=== PATIENT | female | born 1945 | race Caucasian/White ===

== ENCOUNTER 2016-11-22 09:38 | Outpatient (CLI) | payer MEDICARE | END 2016-11-22 23:59 | DX: E11.9 Type 2 diabetes mellitus without complications (principal) ==

== ENCOUNTER 2017-01-11 13:11 | Outpatient (CLI) | payer MEDICARE | END 2017-01-11 13:12 | disposition home or self-care (01) | DX: H53.9 Unspecified visual disturbance (principal); R49.0 Dysphonia ==

== ENCOUNTER 2017-09-04 08:23 | Outpatient (CLI) | payer MEDICARE ==
[2017-09-04 14:51] LABS: ALBUMIN/GLOBULIN RATIO 1.4 (1.0-2.2); BILIRUBIN,TOTAL 0.3 mg/dL (0.2-1.0); BUN - BLOOD UREA NITROGEN 30 mg/dL (6-20); CALCIUM 9.3 mg/dL (8.5-10.3); CARBON DIOXIDE - CO2 26 mmol/L (21-32); CHLORIDE 103 mmol/L (101-111); CHOL/HDL RATIO 8.5 (<4.4); CHOLESTEROL 408 mg/dL; CREATININE 1.1 mg/dL (0.4-1.0); GFR - MDRD 49 (>89); GLUCOSE 188 mg/dL (70-100); HDL CHOLESTEROL 48 mg/dL; POTASSIUM 4.5 mmol/L (3.5-5.0); SODIUM 137 mmol/L (135-145); TOTAL PROTEIN 6.9 g/dL (6.7-8.2); TRIGLYCERIDES 638 mg/dL
[2017-09-04 15:06] LABS: HEMOGLOBIN A1C 0.82 g/dL
[2017-09-04 15:10] LABS: LDL CHOLESTEROL,DIRECT 223 mg/dL
== END 2017-09-04 08:24 | disposition home or self-care (01) ==
LOC: LAB.WCP 08:23
PROVIDERS: ATTEND Physician Assistant Medical
DX: E11.9 Type 2 diabetes mellitus without complications (principal)
CPT/HCPCS: 36415; 80053; 80061; 83036

== ENCOUNTER 2017-12-05 08:00 | Outpatient (CLI) | payer MEDICARE ==
[2017-12-05 12:29] LABS: ALBUMIN 3.9 g/dL (3.2-5.5); ALBUMIN/GLOBULIN RATIO 1.4 (1.0-2.2); BILIRUBIN,TOTAL 0.6 mg/dL (0.2-1.0); CALCIUM 9.1 mg/dL (8.5-10.3); CREATININE 1.3 mg/dL (0.4-1.0); TOTAL PROTEIN 6.7 g/dL (6.7-8.2)
[2017-12-05 12:34] LABS: HB2 TOTAL 13.3 g/dL; HEMOGLOBIN A1C 0.82 g/dL; HEMOGLOBIN A1C % 7.8 % (4.6-6.2)
== END 2017-12-05 08:01 | disposition home or self-care (01) ==
LOC: LAB.WCP 08:00
PROVIDERS: ATTEND Physician Assistant Medical
DX: E11.9 Type 2 diabetes mellitus without complications (principal)
CPT/HCPCS: 36415; 80053; 83036

== ENCOUNTER 2017-12-22 11:06 | Outpatient (CLI) | payer MEDICARE ==
--- NOTE | 2017-12-22 23:59 | Ultrasound Report ---
EXAM: THYROID ULTRASOUND EXAM DATE: 12/22/2017 11:58 AM. CLINICAL HISTORY: Right thyroid nodule COMPARISON: None. TECHNIQUE: Real time sonographic imaging of the thyroid was performed by the manufacturing millwright. Multiple re presentative static images were saved for review. FINDINGS: THYROID GLAND: Right Lobe: 3.3 x 1.3 x 1.6 cm, volume 3.6 cc. Normal background echotexture. Right Lobe Nodules: Multiple tiny anechoic cysts, the largest 0.3 cm in the midportion. Left Lobe: 3.4 x 0.7 x 1.2 cm, volume 1.5 cc. Normal background echotexture. Left Lobe Nodules: Multiple tiny anechoic cysts, the largest 0.2 cm in the midportion. Isthmus: 0.2 cm AP. Isthmic Nodules: None. LYMPH NODES: No adenopathy demonstrated in the central or lateral compartment. OTHER: None. IMPRESSION: Multiple tiny subcentimeter cysts bilaterally, benign finding. Management recommendations are based on 2015 [place] [employer] Management Guidelines for A dult Patients with Thyroid Nodules and Differentiated Thyroid Cancer. [facility] Referring Provider Line: [phone] SITE ID: [id number]
== END 2017-12-22 11:07 | disposition home or self-care (01) ==
LOC: DI 11:06
PROVIDERS: ATTEND Physician Assistant Medical
DX: E04.2 Nontoxic multinodular goiter (principal)
CPT/HCPCS: 76536

== ENCOUNTER 2018-03-12 08:26 | Outpatient (CLI) | payer MEDICARE ==
[2018-03-12 12:53] LABS: HB2 TOTAL 13.2 g/dL; HEMOGLOBIN A1C 0.77 g/dL; HEMOGLOBIN A1C % 7.5 % (4.6-6.2)
[2018-03-12 12:57] LABS: BUN - BLOOD UREA NITROGEN 27 mg/dL (6-20); CARBON DIOXIDE - CO2 24 mmol/L (21-32); CHLORIDE 101 mmol/L (101-111); CHOL/HDL RATIO 7.3 (<4.4); CHOLESTEROL 345 mg/dL; CREATININE 1.3 mg/dL (0.4-1.0); GFR - MDRD 40 (>89); GLUCOSE 199 mg/dL (70-100); HDL CHOLESTEROL 47 mg/dL; LDL CHOLESTEROL,CALCULATED 218 mg/dL; LDL/HDL RATIO 4.6 (<4.4); SODIUM 134 mmol/L (135-145); VLDL CHOLESTEROL 80 mg/dL
== END 2018-03-12 08:27 | disposition home or self-care (01) ==
LOC: LAB.WCP 08:26
PROVIDERS: ATTEND Physician Assistant Medical
DX: E11.9 Type 2 diabetes mellitus without complications (principal); E78.5 Hyperlipidemia, unspecified
CPT/HCPCS: 36415; 80048; 80061; 83036; 83721; 84443

== ENCOUNTER 2018-06-19 09:37 | Outpatient (CLI) | payer MEDICARE ==
[2018-06-19 12:58] LABS: HB2 TOTAL 13.2 g/dL; HEMOGLOBIN A1C 0.99 g/dL
[2018-06-19 13:10] LABS: CALCIUM 9.2 mg/dL (8.5-10.3); CREATININE 1.4 mg/dL (0.4-1.0)
== END 2018-06-19 09:38 | disposition home or self-care (01) ==
LOC: LAB.WCP 09:37
PROVIDERS: ATTEND Physician Assistant Medical
DX: E11.9 Type 2 diabetes mellitus without complications (principal)
CPT/HCPCS: 36415; 80048; 83036

== ENCOUNTER 2019-01-17 08:00 | Outpatient (CLI) | payer MEDICARE ==
[2019-01-17 12:29] LABS: BASOPHILS # (AUTO) 0.1 10^3/uL (0.0-0.1); BASOPHILS % (AUTO) 0.9 %; EOSINOPHILS # (AUTO) 0.1 10^3/uL (0.0-0.7); EOSINOPHILS % (AUTO) 2.2 %; HGB - HEMOGLOBIN 12.6 g/dL (12.0-16.0); LYMPHOCYTES # (AUTO) 1.9 10^3/uL (1.5-3.5); LYMPHOCYTES % (AUTO) 29.2 %; MEAN CORPUSCULAR HGB CONC 33.3 g/dL (32.0-36.0); MEAN CORPUSCULAR VOLUME 93.2 fL (81.0-99.0); MEAN PLATELET VOLUME 7.5 fL (7.9-10.8); MONOCYTES # (AUTO) 0.5 10^3/uL (0.0-1.0); MONOCYTES % (AUTO) 8.1 %; NEUTROPHILS # (AUTO) 3.9 10^3/uL (1.5-6.6); NEUTROPHILS % (AUTO) 59.6 %; PLT - PLATELET COUNT 284 10^3/uL (130-450); RED BLOOD COUNT 4.07 10^6/uL (4.20-5.40); RED CELL DISTRIBUTION WIDTH 14.4 % (12.0-15.0); WHITE BLOOD COUNT 6.6 x10^3/uL (4.8-10.8)
[2019-01-17 12:52] LABS: ALBUMIN 3.8 g/dL (3.2-5.5); ALBUMIN/GLOBULIN RATIO 1.3 (1.0-2.2); ALKALINE PHOSPHATASE 64 IU/L (42-121); ALT ALANINE AMINOTRANSFERASE 30 IU/L (10-60); AST ASPARTATE AMINOTRANSFERASE 26 IU/L (10-42); BILIRUBIN,TOTAL 0.6 mg/dL (0.2-1.0); BUN - BLOOD UREA NITROGEN 24 mg/dL (6-20); CALCIUM 9.1 mg/dL (8.5-10.3); CARBON DIOXIDE - CO2 23 mmol/L (21-32); CHLORIDE 101 mmol/L (101-111); CHOLESTEROL 461 mg/dL; CREATININE 1.2 mg/dL (0.4-1.0); GFR - MDRD 44 (>89); GLUCOSE 174 mg/dL (70-100); HDL CHOLESTEROL 42 mg/dL; SODIUM 135 mmol/L (135-145); TOTAL PROTEIN 6.7 g/dL (6.7-8.2)
[2019-01-17 13:12] LABS: HB2 TOTAL 13.3 g/dL; HEMOGLOBIN A1C 0.77 g/dL; HEMOGLOBIN A1C % 7.4 % (4.6-6.2)
[2019-01-17 13:14] LABS: LDL CHOLESTEROL,DIRECT 256 mg/dL; LDLD/HDL RATIO 6.1 (<4.4)
== END 2019-01-17 23:59 | disposition home or self-care (01) ==
LOC: LAB.WCP 08:00
PROVIDERS: ATTEND Physician Assistant Medical
DX: E11.9 Type 2 diabetes mellitus without complications (principal); E78.5 Hyperlipidemia, unspecified; D64.9 Anemia, unspecified
CPT/HCPCS: 36415; 80053; 80061; 83036; 83721; 85025

== ENCOUNTER 2019-04-21 06:00 | Outpatient (CLI) | payer MEDICARE ==
[2019-04-21 12:31] LABS: CALCIUM 9.5 mg/dL (8.5-10.3); CREATININE 1.3 mg/dL (0.4-1.0)
[2019-04-21 16:27] LABS: HB2 TOTAL 12.8 g/dL; HEMOGLOBIN A1C 0.69 g/dL; HEMOGLOBIN A1C % 7.1 % (4.6-6.2)
== END 2019-04-21 23:59 | disposition home or self-care (01) ==
LOC: LAB.WCP 06:00
PROVIDERS: ATTEND Physician Assistant Medical
DX: E11.9 Type 2 diabetes mellitus without complications (principal)
CPT/HCPCS: 36415; 80048; 83036

== ENCOUNTER 2019-05-22 13:18 | Outpatient (CLI) | payer MEDICARE ==
[2019-05-22 18:54] LABS: HGB - HEMOGLOBIN 11.6 g/dL (12.0-16.0); MEAN CORPUSCULAR HEMOGLOBIN 30.9 pg (27.0-31.0); MEAN CORPUSCULAR HGB CONC 31.4 g/dL (32.0-36.0); MEAN CORPUSCULAR VOLUME 98.7 fL (81.0-99.0); MEAN PLATELET VOLUME 9.9 fL (7.9-10.8); RED BLOOD COUNT 3.75 10^6/uL (4.20-5.40); RED CELL DISTRIBUTION WIDTH 13.1 % (12.0-15.0)
[2019-05-22 19:04] LABS: CREATININE,URINE 128.7 mg/dL; PROTEIN/CREATININE RATIO,URINE 0.1 (<=0.2)
== END 2019-05-22 13:19 | disposition home or self-care (01) ==
LOC: LAB.WCP 13:18
PROVIDERS: ATTEND Internal Medicine Nephrology
DX: D70.9 Neutropenia, unspecified (principal); D63.1 Anemia in chronic kidney disease; R80.9 Proteinuria, unspecified
CPT/HCPCS: 36415; 82570; 84156; 85027

== ENCOUNTER 2019-06-08 14:19 | Outpatient (CLI) | payer MEDICARE ==
--- NOTE | 2019-06-09 09:25 | Ultrasound Report ---
Reason: STAGE 3 KIDNEY DISEASE Procedure Date: 06/08/2019 Accession Number: [id number] / [id number] Procedure: US - Retroperitoneal CPT Code: FULL RESULT: EXAM: RENAL ULTRASOUND EXAM DATE: 06/08/2019 03:11 PM. CLINICAL HISTORY: STAGE 3 KIDNEY DISEASE. COMPARISON: None. TECHNIQUE: Real-time scanning was performed with static images obtained. FINDINGS: Right Kidney: 9.3 x 3.8 x 2.9 cm. Normal echotexture with no stones, contour-deforming masses, or hydronephrosis. There is a 2.1 cm maximal diameter central cyst of no clinical significance. Left Kidney: 9.6 x 3.8 x 4.1 cm. Normal echotexture with no stones, contour-deforming masses, or hydronephrosis. Bladder: Bilateral jets seen. The prevoid bladder volume was 87 cc. The postvoid bladder volume was 2 cc. Other: There is an approximate 3.2 cm maximal diameter right adnexal cyst, presumably arising from right ovary. No solid adnexal mass. IMPRESSION: 1. Minimal bilateral renal atrophy. No significant renal or bladder abnormality. 2.There is an approximate 3.2 cm maximal diameter right adnexal cyst. In a postmenopausal female, short-term follow-up is recommended. Consider pelvic ultrasound in 3 months. [facility]
== END 2019-06-08 14:20 | disposition home or self-care (01) ==
LOC: DI 14:19
PROVIDERS: ATTEND Internal Medicine Nephrology
DX: N18.3 Chronic kidney disease, stage 3 (moderate) (principal); N94.89 Other specified conditions associated with female genital organs and menstrual cycle
CPT/HCPCS: 76770

== ENCOUNTER 2019-08-15 08:48 | Outpatient (CLI) | payer MEDICARE ==
[2019-08-15 12:44] LABS: ALBUMIN 4.2 g/dL (3.2-5.5); ALBUMIN/GLOBULIN RATIO 1.4 (1.0-2.2); ALKALINE PHOSPHATASE 71 IU/L (42-121); ALT ALANINE AMINOTRANSFERASE 30 IU/L (10-60); AST ASPARTATE AMINOTRANSFERASE 24 IU/L (10-42); BILIRUBIN,TOTAL 0.4 mg/dL (0.2-1.0); BUN - BLOOD UREA NITROGEN 23 mg/dL (6-20); CALCIUM 9.7 mg/dL (8.5-10.3); CARBON DIOXIDE - CO2 26 mmol/L (21-32); CHLORIDE 101 mmol/L (101-111); CHOL/HDL RATIO 8.2 (<4.4); CHOLESTEROL 410 mg/dL; CREATININE 1.2 mg/dL (0.4-1.0); GFR - MDRD 44 (>89); GLUCOSE 183 mg/dL (70-100); HDL CHOLESTEROL 50 mg/dL; SODIUM 138 mmol/L (135-145); TOTAL PROTEIN 7.1 g/dL (6.7-8.2)
[2019-08-15 13:58] LABS: LDL CHOLESTEROL,DIRECT 261 mg/dL; LDLD/HDL RATIO 5.3 (<4.4)
[2019-08-15 15:01] LABS: HB2 TOTAL 12.8 g/dL; HEMOGLOBIN A1C 0.73 g/dL; HEMOGLOBIN A1C % 7.4 % (4.6-6.2)
== END 2019-08-15 23:59 | disposition home or self-care (01) ==
LOC: LAB.WCP 08:48
PROVIDERS: ATTEND Physician Assistant Medical
DX: E11.9 Type 2 diabetes mellitus without complications (principal)
CPT/HCPCS: 36415; 80053; 80061; 83036; 83721

== ENCOUNTER 2021-03-10 12:57 | Emergency (ER) | payer MEDICARE ==
[2021-03-10 13:15] VITALS: BP 138/67
[2021-03-10 13:34] LABS: BASOPHILS # (AUTO) 0.1 10^3/uL (0.0-0.1); BASOPHILS % (AUTO) 0.9 %; EOSINOPHILS # (AUTO) 0.3 10^3/uL (0.0-0.7); EOSINOPHILS % (AUTO) 3.9 %; HCT - HEMATOCRIT 32.6 % (37.0-47.0); HGB - HEMOGLOBIN 10.9 g/dL (12.0-16.0); LYMPHOCYTES # (AUTO) 1.8 10^3/uL (1.5-3.5); LYMPHOCYTES % (AUTO) 26.9 %; MEAN CORPUSCULAR HEMOGLOBIN 31.2 pg (27.0-31.0); MEAN CORPUSCULAR HGB CONC 33.4 g/dL (32.0-36.0); MEAN CORPUSCULAR VOLUME 93.4 fL (81.0-99.0); MONOCYTES # (AUTO) 0.5 10^3/uL (0.0-1.0); MONOCYTES % (AUTO) 6.7 %; NEUTROPHILS # (AUTO) 4.2 10^3/uL (1.5-6.6); NEUTROPHILS % (AUTO) 61.3 %; PLT - PLATELET COUNT 260 10^3/uL (130-450); RED BLOOD COUNT 3.49 10^6/uL (4.20-5.40); WHITE BLOOD COUNT 6.9 x10^3/uL (4.8-10.8)
--- NOTE | 2021-03-10 13:38 | ED Physician Documentation ---
History of Present Illness - Stated complaint Stated Complaint: POTASSIUM CONCERN - Chief complaint Chief Complaint: General - Additonal information Additional information: 75-year-old female was called by her cardiology office to come to the ER to have her potassium level rechecked. She sees Dr. Bean [employer] with [facility] in [place]. She had routine screening labs completed on 04 March. The physician noted today that she had a potassium result of 5.8 and requested she come to the ER to have it rechecked. Patient has a history of diabetes, cardiomyopathy and congestive heart failure. She denies that she has had any unusual or change in her baseline symptoms. She is not acutely short of breath and denies chest pain at this time. No lower extremity swelling or edema. She would not be here if she had not been advised to have her labs rechecked. Review of Systems Constitutional: reports: Reviewed and negative Throat: reports: Reviewed and negative Cardiac: reports: Reviewed and negative Respiratory: reports: Reviewed and negative GI: reports: Reviewed and negative : reports: Reviewed and negative Skin: reports: Reviewed and negative Musculoskeletal: reports: Reviewed and negative PD PAST MEDICAL HISTORY - Allergies Allergies/Adverse Reactions: Allergies Allergy/AdvReac Type Severity Reaction Status Date / Time No Known Drug Allergies Allergy Verified 03/10/21 13:15 PD ED PE EXPANDED - General General: Alert, No acute distress, Well developed/nourished - Cardiac Cardiac: Regular Rate, Murmur Present, Radial strong equal, Pedal strong equal, Cap refill < 2 sec - Respiratory Respiratory: Clear to ausultation radha. No: Distress, Labored - Abdomen Abdomen: Normal Bowel sounds, Generalized/diffuse. No: Tender to palpation - Derm Derm: Normal color, Warm and dry - Extremities Extremities: Normal. No: Deformity, Tenderness - Neuro Neuro: Alert and Oriented X 3, CNII-XII intact - GCS Eye Opening: Spontaneous Motor: Obeys Commands Verbal: Oriented Total: 15 Results - Vitals Vitals: Vital Signs - 24 hr 03/10/21 13:10 Temperature 36.3 C L Heart Rate 86 Respiratory 15 Rate Blood Pressure 138/67 H O2 Saturation 100 Oxygen O2 Source Room air - Labs Labs: Laboratory Tests 03/10/21 03/10/21 13:28 13:28 WBC 6.9 RBC 3.49 L Hgb 10.9 L Hct 32.6 L MCV 93.4 MCH 31.2 H MCHC 33.4 RDW 13.0 Plt Count 260 MPV 9.0 Neut # (Auto) 4.2 Lymph # (Auto) 1.8 [place] # (Auto) 0.5 Eos # (Auto) 0.3 Baso # (Auto) 0.1 Absolute Nucleated RBC 0.00 Nucleated RBC % 0.0 Sodium 129 L Potassium 4.8 Chloride 97 L Carbon Dioxide 22 Anion Gap 10.0 BUN 21 H Creatinine 1.0 Estimated GFR (MDRD) 54 L Glucose 149 H Calcium 9.0 Total Bilirubin 0.6 AST 29 ALT 40 Alkaline Phosphatase 72 Total Protein 6.8 Albumin 4.1 Globulin 2.7 Albumin/Globulin Ratio 1.5 Lipase 58 H PD MEDICAL DECISION MAKING - ED course Complexity details: reviewed results, re-evaluated patient, d/w patient ED course: 75-year-old female advised come to the emergency department for a recheck of her labs. Screening chemistry completed on 04 March showed a potassium of 5.8. To day screening labs show an anemia with a hemoglobin of 10.9 as expected given the history of CHF and cardiomyopathy. Her electrolytes do show a mild hyponatremia at 129 but her potassium is today 4.8. Copy of the labs were given to the patient. She is to continue follow-up with her primary care doctor and knitting machine tender as already scheduled. Departure - Departure Disposition: 01 Home, Self Care Clinical Impression: Laboratory examination Condition: Stable Record reviewed to determine appropriate education?: Yes Comments: Mckenzie cortez came to the emergency department today at the request of your knitting machine tender to have your labs rechecked. On 04 March your potassium was noted to be 5.8 on a screening exam. The labs were rechecked today. Your potassium is now 4.8. This is a normal number. No further evaluation, testing or treatment is indicated at this time. Please continue to follow-up with your knitting machine tender and primary care doctor as already scheduled.
[2021-03-10 13:46] LABS: ALBUMIN 4.1 g/dL (3.2-5.5); ALBUMIN/GLOBULIN RATIO 1.5 (1.0-2.2); BILIRUBIN,TOTAL 0.6 mg/dL (0.2-1.0); POTASSIUM 4.8 mmol/L (3.5-5.0); TOTAL PROTEIN 6.8 g/dL (6.7-8.2)
== END 2021-03-10 14:24 | disposition home or self-care (01) ==
LOC: ED 12:57
DX: E87.1 Hypo-osmolality and hyponatremia (principal); D64.9 Anemia, unspecified; I50.9 Heart failure, unspecified; E11.9 Type 2 diabetes mellitus without complications
CPT/HCPCS: 36415; 80053; 83690; 85025; 99282; 99283

== ENCOUNTER 2022-07-26 16:01 | Outpatient (CLI) | payer MEDICARE ==
--- NOTE | 2022-07-26 16:54 | XRAY Report ---
PROCEDURE: Hand 2 View BILAT INDICATIONS: BILATERAL HAND PAIN TECHNIQUE: 2 views of the hand(s) acquired. COMPARISON: None FINDINGS: Bones: No fractures or dislocations. Mild joint space narrowing of the interphalangeal joints consis tent with degenerative changes with no osteophytes. No erosions or evidence of inflammatory arthropat hy. No suspicious bony lesions. Soft tissues: No suspicious soft tissue calcifications. IMPRESSION: 1. Mild joint space narrowing of the interphalangeal joints consistent with degenerative changes. 2. No erosions or evidence of inflammatory arthropathy. Reviewed by: Orlando Camejo on 07/26/2022 4:53 PM PST Approved by: Orlando aCmejo on 07/26/2022 4:53 PM PST Station ID: [id number]
--- NOTE | 2022-07-26 16:57 | XRAY Report ---
PROCEDURE: Wrist 2 View BILAT INDICATIONS: BILATERAL WRIST PAIN TECHNIQUE: 2 views of the wrist were acquired. COMPARISON: None FINDINGS: Bones: No fractures or dislocations. No suspicious bony lesions. Soft tissues: No suspicious soft tissue calcifications. IMPRESSION: Normal bilateral wrists. Reviewed by: Orlando Camejo on 07/26/2022 4:56 PM [facility] Approved by: Orlando Camejo on 07/26/2022 4:56 PM [facility] Station ID: [id number]
== END 2022-07-26 16:02 | disposition home or self-care (01) ==
LOC: DI 16:01
PROVIDERS: ATTEND Student in an Organized Health Care Education/Training Program
DX: M19.042 Primary osteoarthritis, left hand (principal); M19.041 Primary osteoarthritis, right hand